=== PATIENT | male | born 1950 | race Hispanic/Latino ===

== ENCOUNTER 2021-05-17 05:45 | Day surgery (SDC) | payer OTHER ==
[2021-05-15 11:19] LABS: BASOPHILS % (AUTO) 0.7 % (0.0-5.0); EOSINOPHILS % (AUTO) 1.7 % (0.0-8.0); HEMATOCRIT 38.5 % (42-54); LYMPHOCYTES % (AUTO) 23.8 % (21.0-51.0); MEAN CORPUSCULAR HEMOGLOBIN 31.1 pg (27.0-33.0); MEAN CORPUSCULAR VOLUME 94.4 fL (79-99); MONOCYTES % (AUTO) 7.6 % (3.0-13.0); NEUTROPHILS % (AUTO) 65.9 % (40.0-77.0); PLATELET COUNT (AUTO) 219 K/uL (130-400); RED BLOOD CELL COUNT(AUTO) 4.08 MIL/uL (4.50-6.20); RED CELL DISTRIBUTION WIDTH 13.2 % (11.0-15.5); WHITE BLOOD COUNT (AUTO) 7.5 K/uL (4.8-10.8)
[2021-05-15 11:28] LABS: POTASSIUM 5.6 mmol/L (3.5-5.1)
[2021-05-15 12:12] LABS: INR 1.01 (0.85-1.15); PROTHROMBIN TIME 10.5 SEC (9.6-11.6)
[2021-05-16 18:47] VITALS: BP 157/76
[2021-05-17] VITALS (14 sets, daily range): BP systolic 103–135; BP diastolic 44–78
[~2021-05-17] VITALS: Ht 175.3 cm; Wt 80.0 kg
[~2021-05-17 05:45] MED LIST: ATOR40TA69 PO; DILT360T14 PO; LOSA100T58 PO; OLODATEROL IH; TERA5CAP4 PO; VITAMIN D PO
[2021-05-17] MEDS ORDERED: CEFAZOLIN SODIUM 1 GM VIAL IVP SCH (06:00)
[2021-05-17] MEDS ORDERED: LACTATED RINGERS 1000ML 1,000 ML IV ONE (06:18)
[2021-05-17] MEDS ORDERED: LIDOCAINE 1%-EPI 1:100,000 20 ML VIAL IJ ONE ×2 (07:11→08:11)
[2021-05-17] MEDS ORDERED: LIDOCAINE PF 100MG/5ML (2%) SYRINGE 5ML ONE (07:55)
[2021-05-17] MEDS ORDERED: MIDAZOLAM HCL 1 MG/ML 2ML VIAL ONE (07:55)
[2021-05-17] MEDS ORDERED: FENTANYL CITRATE PF 50 MCG/1 ML 2ML VIAL ONE (07:56)
[2021-05-17] MEDS ORDERED: PROPOFOL 10 MG/ML 20ML VIAL IV ONE (07:59)
[2021-05-17] MEDS ORDERED: CEFAZOLIN SODIUM 2 GM VIAL IV ONE (08:05)
[2021-05-17] MEDS ORDERED: PROPOFOL 1000 MG/100 ML 100 ML IV ONE (08:08)
[2021-05-17] MEDS ORDERED: EPHEDRINE SULFATE 50 MG/ML AMPULE ONE (08:40)
[2021-05-17] MEDS ORDERED: BACITRACIN 28.4 GM OINT TP ONE (09:09)
[2021-05-17] MEDS ORDERED: ACETAMINOPHEN 500 MG TABLET ONE (10:25)
== END 2021-05-17 11:00 | disposition home or self-care (01) ==
LOC: DAH 05:45
PROVIDERS: ATTEND Otolaryngology Plastic Surgery within the Head & Neck
DX: C44.01 Basal cell carcinoma of skin of lip (principal); I12.9 Hypertensive chronic kidney disease with stage 1 through stage 4 chronic kidney disease, or unspecified chronic kidney disease; N18.9 Chronic kidney disease, unspecified; Z79.899 Other long term (current) drug therapy; Z98.890 Other specified postprocedural states; Z79.01 Long term (current) use of anticoagulants
CPT/HCPCS: 14060; 36415; 71045; 80048; 85025; 85610; 85730; 87635; 88305; 88331; 88332; 93005; A4215; A4221; A4222; A4223; A4600; A4606; A4663; C9803; J0690 ×2; J2001; J2250; J2704 ×2; J3490 ×3; J7120; J3010